=== PATIENT | female | born 1965 | race Caucasian/White ===

== ENCOUNTER 2024-03-12 20:38 | Inpatient (IN) | payer OTHER ==
[~2024-03-12] VITALS: Ht 167.6 cm; Wt 105.4 kg
[2024-03-12 02:30] VITALS: BP 158/81
[~2024-03-12 20:38] MED LIST: AMOXICILLIN500 MG PO; CIPRO500 MG PO; CLARITIN-D 12 H1 TAB PO; DIFLUCAN150 MG PO; FLONASE0.05 MG/AC NS; KEFLEX500 MG PO; LOMOTIL 0.025 M1 TAB PO; MEDROL DOSEPAK4 MG PO; Phenergan25 MG PO; TORADOL10 MG PO; VICODIN 5/500 505 MG PO; VICODIN 500 MG-1 TAB PO; ZYLOPRIM100 MG PO
[2024-03-12 20:48] VITALS: BP 151/64
[2024-03-12] MEDS ORDERED: ACETAMINOPHEN 325 MG TAB PO ONE (20:55)
[2024-03-12 21:09] LABS: BASO % 0.4 % (0.0-1.0); EOS % 0.2 % (1.0-4.0); HEMATOCRIT 38.9 % (37.0-47.0); MEAN CELL VOLUME 88.8 fl (81.0-99.0); MEAN CORPUSCULAR HGB 29.2 pg (27.0-31.0); MEAN CORPUSCULAR HGB CONC 32.9 g/dl (33.0-37.0); MEAN PLATELET VOLUME 11.5 fl (9.6-12.3); MONO # 0.4 10*3/uL (0.1-1.0); MONO % 7.7 % (3.0-9.0); NEUT # 4.2 10*3/uL (2.3-7.9); NEUT % 84.4 % (47.0-73.0); PLATELET COUNT AUTOMATED 96 10*3/uL (130-400); RED BLOOD COUNT 4.38 10*6/uL (4.10-5.10); RED CELL DISTRI WIDTH 16.5 % (0-14.5)
[2024-03-12 21:27] LABS: POTASSIUM 3.8 mmol/L (3.4-5.1)
[2024-03-12] MEDS ORDERED: SODIUM CHLORIDE 0.9% 500 ML IV ONE (21:50)
[2024-03-12 23:31] LABS: BILIRUBIN Negative (Negative); BLOOD 1+ (Negative); CLARITY Clear (Clear); COLOR Yellow (Yellow); GLUCOSE 1+ (Negative); KETONE 2+ (Negative); LEUKO ESTERASE Negative (Negative); NITRITE Negative (Negative)
[2024-03-12 23:39] LABS: EPITHELIAL CELLS 16-20
[2024-03-13] MEDS ORDERED: ARMOUR THYROID90 M1 PO (00:19)
[2024-03-13] MEDS ORDERED: ACETAMINOPHEN 650 MG SUPP R PRN (00:20)
[2024-03-13] MEDS ORDERED: MORPHINE Sulfate 2 MG/ML SYR IV PRN (00:20)
[2024-03-13] MEDS ORDERED: BISACODYL 10 MG SUPP R PRN (00:20)
[2024-03-13] MEDS ORDERED: ACETAMINOPHEN 325 MG TAB PO PRN (00:20)
[2024-03-13] MEDS ORDERED: BISACODYL 5 MG TAB PO PRN (00:20)
[2024-03-13] MEDS ORDERED: Magnesium Hydroxide 30 ML UDC PO PRN (00:20)
[2024-03-13] MEDS ORDERED: Ondansetron Hydrochloride 4 MG/2 ML VIAL IV PRN (00:20)
[2024-03-13] MEDS ORDERED: TEMAZEPAM 15 MG CAP PO PRN (00:20)
[2024-03-13] MEDS ORDERED: SODIUM CHLORIDE 0.9% 1,000 ML IV SCH ×2 (00:25→19:40)
[2024-03-13 01:17] VITALS: BP 145/61
[2024-03-13 02:30] VITALS: BP 151/81
[2024-03-13] MEDS ORDERED: Ceftriaxone Sodium 1 GM in SYRINGE INFUSION 10 ML IV SCH (04:00)
[2024-03-13] MEDS ORDERED: AZITHROMYCIN 250 ML IV SCH (04:13)
[2024-03-13] MEDS ORDERED: Pantoprazole Sodium 40 MG TAB PO SCH (06:00)
[2024-03-13 08:00] VITALS: BP 138/64
[2024-03-13] MEDS ORDERED: NYSTATIN 500,000 UNITS/5 ML UDC PO SCH (10:00)
[2024-03-13] MEDS ORDERED: GUAIFENESIN 600 MG TAB ER PO SCH (10:00)
[2024-03-13] MEDS ORDERED: Enoxaparin Sodium 40 MG/0.4 ML SYR SC SCH (10:00)
[2024-03-13 16:00] VITALS: BP 134/68
[2024-03-13 20:06] VITALS: BP 133/61
[2024-03-14] VITALS: BP 113/34
[2024-03-14 06:24] LABS: HEMATOCRIT 33.3 % (37.0-47.0); MEAN CELL VOLUME 88.8 fl (81.0-99.0); MEAN CORPUSCULAR HGB 28.8 pg (27.0-31.0); MEAN CORPUSCULAR HGB CONC 32.4 g/dl (33.0-37.0); MEAN PLATELET VOLUME 11.7 fl (9.6-12.3); PLATELET COUNT AUTOMATED 96 10*3/uL (130-400); RED BLOOD COUNT 3.75 10*6/uL (4.10-5.10); RED CELL DISTRI WIDTH 16.6 % (0-14.5)
[2024-03-14 06:27] LABS: ACT PARTIAL THROMBO TIME 34.8 SECONDS (20.0-32.1); ALKALINE PHOSPHATASE 39 U/L (46-116); BUN 9 mg/dl (9-23); CHLORIDE 106 mmol/L (98-107); CHOLESTEROL 254 mg/dL (<200); FREE T4 0.53 ng/dl (0.89-1.76); LDL CHOLESTEROL 192 mg/dL (9-159); POTASSIUM 3.4 mmol/L (3.4-5.1); SGPT/ALT 17 U/L (5-49); TRIGLYCERIDES 76 mg/dl (<150)
[2024-03-14 07:15] LABS: MANUAL DIFF REFLEX YES
[2024-03-14 07:40] LABS: ACANTHOCYTES FEW; BASOPHILS 1 % (0-1); BURR CELLS FEW; PLATELET SUFFICIENCY LOW (NORMAL); TOTAL CELLS COUNTED 100 #CELLS
[2024-03-14 08:00] VITALS: BP 118/57
[2024-03-14 09:34] LABS: VITAMIN D, 25-HYDROXY 50.3 ng/mL (30-100)
[2024-03-14 12:00] VITALS: BP 137/63
[2024-03-14 16:00] VITALS: BP 125/36
[2024-03-14 16:03] VITALS: BP 140/60
[2024-03-14] MEDS ORDERED: IBUPROFEN 600 MG TAB PO PRN (16:15)
[2024-03-14 20:00] VITALS: BP 122/62
[2024-03-15] VITALS: BP 135/60
[2024-03-15] MEDS ORDERED: THYROID 30 MG TAB PO SCH (06:00)
[2024-03-15] MEDS ORDERED: Levothyroxine Sodium 175 MCG TAB PO SCH (06:00)
[2024-03-15 06:09] LABS: BASO % 0.4 % (0.0-1.0); EOS % 0.7 % (1.0-4.0); HEMATOCRIT 35.5 % (37.0-47.0); MEAN CELL VOLUME 88.5 fl (81.0-99.0); MEAN CORPUSCULAR HGB 29.7 pg (27.0-31.0); MEAN CORPUSCULAR HGB CONC 33.5 g/dl (33.0-37.0); MEAN PLATELET VOLUME 12.2 fl (9.6-12.3); MONO # 0.2 10*3/uL (0.1-1.0); MONO % 7.8 % (3.0-9.0); NEUT # 2.2 10*3/uL (2.3-7.9); NEUT % 79.4 % (47.0-73.0); PLATELET COUNT AUTOMATED 97 10*3/uL (130-400); RED BLOOD COUNT 4.01 10*6/uL (4.10-5.10); RED CELL DISTRI WIDTH 16.2 % (0-14.5); WHITE BLOOD COUNT 2.8 10*3/uL (4.8-10.8)
[2024-03-15 06:39] LABS: BUN 8 mg/dl (9-23); CHLORIDE 103 mmol/L (98-107); CPK 528 U/L (34-171); POTASSIUM 3.8 mmol/L (3.4-5.1)
[2024-03-15 08:00] VITALS: BP 136/40
[2024-03-15] MEDS ORDERED: SODIUM CHLORIDE 0.9% 1,000 ML IV ONE (10:05)
[2024-03-15 12:00] VITALS: BP 115/61
[2024-03-15] MEDS ORDERED: BENZONATATE 100 MG CAP PO PRN (13:35)
[2024-03-15 16:00] VITALS: BP 152/77
[2024-03-15 20:00] VITALS: BP 150/49
[2024-03-15] MEDS ORDERED: Na Phos, Dibasic/Na Phos, Mo 1 EA BOT R ONE (23:20)
[2024-03-16] VITALS: BP 150/66
[2024-03-16 06:46] LABS: BUN 10 mg/dl (9-23); CHLORIDE 104 mmol/L (98-107); CPK 471 U/L (34-171); POTASSIUM 3.5 mmol/L (3.4-5.1)
[2024-03-16 07:04] LABS: BASO % 0.4 % (0.0-1.0); EOS % 1.6 % (1.0-4.0); HEMATOCRIT 33.8 % (37.0-47.0); MEAN CORPUSCULAR HGB 28.9 pg (27.0-31.0); MEAN CORPUSCULAR HGB CONC 32.8 g/dl (33.0-37.0); MONO # 0.2 10*3/uL (0.1-1.0); MONO % 7.5 % (3.0-9.0); NEUT # 1.8 10*3/uL (2.3-7.9); NEUT % 70.3 % (47.0-73.0); PLATELET COUNT AUTOMATED 105 10*3/uL (130-400); RED BLOOD COUNT 3.84 10*6/uL (4.10-5.10); RED CELL DISTRI WIDTH 16.3 % (0-14.5); WHITE BLOOD COUNT 2.5 10*3/uL (4.8-10.8)
[2024-03-16 08:00] VITALS: BP 130/78
[2024-03-16] MEDS ORDERED: Albuterol Sulfate 2.5 MG/3 ML VIAL NEB SCH (10:25)
[2024-03-16 12:00] VITALS: BP 147/66
[2024-03-16 16:00] VITALS: BP 127/45
[2024-03-16 20:00] VITALS: BP 153/87
[2024-03-17] VITALS: BP 152/60
[2024-03-17 06:36] LABS: HEMATOCRIT 33.4 % (37.0-47.0); MEAN CELL VOLUME 87.4 fl (81.0-99.0); MEAN CORPUSCULAR HGB 28.8 pg (27.0-31.0); MEAN CORPUSCULAR HGB CONC 32.9 g/dl (33.0-37.0); MEAN PLATELET VOLUME 11.8 fl (9.6-12.3); PLATELET COUNT AUTOMATED 117 10*3/uL (130-400); RED BLOOD COUNT 3.82 10*6/uL (4.10-5.10); RED CELL DISTRI WIDTH 16.2 % (0-14.5); WHITE BLOOD COUNT 2.3 10*3/uL (4.8-10.8)
[2024-03-17 06:48] LABS: BUN 11 mg/dl (9-23); CHLORIDE 105 mmol/L (98-107); POTASSIUM 3.4 mmol/L (3.4-5.1)
[2024-03-17 07:16] LABS: MANUAL DIFF REFLEX YES
[2024-03-17 07:22] LABS: BASOPHILS 1 % (0-1); BURR CELLS FEW; OVALOCYTES FEW; PLATELET SUFFICIENCY LOW (NORMAL); POLYCHROMASIA SLIGHT; TOTAL CELLS COUNTED 100 #CELLS
[2024-03-17 08:00] VITALS: BP 158/72
[2024-03-17] MEDS ORDERED: FOLIC ACID 0.4 MG TAB PO SCH (10:00)
[2024-03-17 12:00] VITALS: BP 146/70
[2024-03-17] MEDS ORDERED: CEFEPIME HCL IN DEXTROSE 5 % 50 ML IV SCH (14:00)
[2024-03-17 16:00] VITALS: BP 127/49; BP 148/73
== END 2024-03-17 18:37 | disposition left against medical advice (07) | DRG 871 ==
LOC: ED 20:38 → 4E 23:57 → EDHOLD 23:57 → 4E 03-13 01:47
PROVIDERS: Internal Medicine; Student in an Organized Health Care Education/Training Program; ADMIT Family Medicine; ATTEND Family Medicine
DX: A41.51 Sepsis due to Escherichia coli [E. coli] (principal); J15.5 Pneumonia due to Escherichia coli; N17.0 Acute kidney failure with tubular necrosis; J96.01 Acute respiratory failure with hypoxia; R04.2 Hemoptysis; D61.818 Other pancytopenia; E66.09 Other obesity due to excess calories; R26.2 Difficulty in walking, not elsewhere classified; G90.89 Other disorders of autonomic nervous system; E78.2 Mixed hyperlipidemia; K57.30 Diverticulosis of large intestine without perforation or abscess without bleeding; Z53.29 Procedure and treatment not carried out because of patient's decision for other reasons; M51.369 Other intervertebral disc degeneration, lumbar region without mention of lumbar back pain or lower extremity pain; E86.0 Dehydration; E06.3 Autoimmune thyroiditis; K80.20 Calculus of gallbladder without cholecystitis without obstruction; E66.01 Morbid (severe) obesity due to excess calories; Z90.710 Acquired absence of both cervix and uterus; Z88.1 Allergy status to other antibiotic agents; Z88.5 Allergy status to narcotic agent; Z68.37 Body mass index [BMI] 37.0-37.9, adult

== ENCOUNTER 2024-04-17 13:15 | Emergency (ER) | payer OTHER ==
[~2024-04-17] VITALS: Ht 167.6 cm; Wt 97.5 kg
[~2024-04-17 13:15] MED LIST changes: +ARMOUR THYROID90 M1 PO; +PREDNISONE10 MG PO; +ZITHROMAX250 MG PO
[2024-04-17 14:41] LABS: BASO % 0.3 % (0.0-1.0); EOS # 0.2 10*3/uL (0.0-0.4); HEMATOCRIT 35.3 % (37.0-47.0); MEAN CELL VOLUME 89.8 fl (81.0-99.0); MEAN CORPUSCULAR HGB 28.5 pg (27.0-31.0); MEAN CORPUSCULAR HGB CONC 31.7 g/dl (33.0-37.0); MEAN PLATELET VOLUME 11.3 fl (9.6-12.3); MONO # 0.3 10*3/uL (0.1-1.0); MONO % 4.4 % (3.0-9.0); NEUT # 4.5 10*3/uL (2.3-7.9); NEUT % 78.7 % (47.0-73.0); PLATELET COUNT AUTOMATED 144 10*3/uL (130-400); RED BLOOD COUNT 3.93 10*6/uL (4.10-5.10); RED CELL DISTRI WIDTH 15.3 % (0-14.5); WHITE BLOOD COUNT 5.7 10*3/uL (4.8-10.8)
[2024-04-17 15:25] LABS: POTASSIUM 4.3 mmol/L (3.4-5.1); TOTAL PROTEIN 7.2 gm/dL (6.0-8.0)
[2024-04-17 15:26] LABS: ACT PARTIAL THROMBO TIME 28.2 SECONDS (20.0-32.1)
[2024-04-17] MEDS ORDERED: APIXABAN 5 MG TAB PO ONE (16:00)
[2024-04-17] MEDS ORDERED: ELIQUIS5 M2 PO (16:56)
[2024-04-17] MEDS ORDERED: ALBUTEROL2.5 MG/0.5 INH ×2 (17:37→18:13)
[2024-04-17] MEDS ORDERED: ELIQUIS5 M1 PO (18:13)
== END 2024-04-17 17:28 | disposition home or self-care (01) ==
LOC: ED 13:15
PROVIDERS: Emergency Medicine
DX: I82.411 Acute embolism and thrombosis of right femoral vein (principal); I82.431 Acute embolism and thrombosis of right popliteal vein; I82.451 Acute embolism and thrombosis of right peroneal vein; E11.9 Type 2 diabetes mellitus without complications; I10 Essential (primary) hypertension; M10.9 Gout, unspecified; Z88.1 Allergy status to other antibiotic agents; Z88.5 Allergy status to narcotic agent; Z98.890 Other specified postprocedural states; Z90.710 Acquired absence of both cervix and uterus

== ENCOUNTER 2024-04-29 10:10 | Emergency (ER) | payer OTHER ==
[~2024-04-29] VITALS: Ht 167.6 cm; Wt 99.8 kg
[~2024-04-29 10:10] MED LIST changes: +ALBUTEROL2.5 MG/0.5 INH; +ELIQUIS5 M1 PO; +ELIQUIS5 M2 PO
[2024-04-29 10:51] LABS: BASO % 0.5 % (0.0-1.0); EOS # 0.2 10*3/uL (0.0-0.4); EOS % 3.9 % (1.0-4.0); HEMATOCRIT 27.9 % (37.0-47.0); MEAN CELL VOLUME 90.9 fl (81.0-99.0); MEAN CORPUSCULAR HGB CONC 30.8 g/dl (33.0-37.0); MEAN PLATELET VOLUME 10.4 fl (9.6-12.3); MONO # 0.4 10*3/uL (0.1-1.0); MONO % 7.2 % (3.0-9.0); NEUT # 4.2 10*3/uL (2.3-7.9); NEUT % 74.2 % (47.0-73.0); PLATELET COUNT AUTOMATED 275 10*3/uL (130-400); RED BLOOD COUNT 3.07 10*6/uL (4.10-5.10); RED CELL DISTRI WIDTH 15.1 % (0-14.5); WHITE BLOOD COUNT 5.7 10*3/uL (4.8-10.8)
[2024-04-29 11:09] LABS: BUN 13 mg/dl (9-23); CHLORIDE 105 mmol/L (98-107); POTASSIUM 4.7 mmol/L (3.4-5.1)
[2024-04-29] MEDS ORDERED: AVPAK AZITHROM250 MG PO (13:42)
== END 2024-04-29 13:55 | disposition home or self-care (01) ==
LOC: ED 10:10
PROVIDERS: Internal Medicine
DX: J40 Bronchitis, not specified as acute or chronic (principal); E11.9 Type 2 diabetes mellitus without complications; I10 Essential (primary) hypertension; Z86.718 Personal history of other venous thrombosis and embolism; Z88.1 Allergy status to other antibiotic agents; Z88.5 Allergy status to narcotic agent; Z90.710 Acquired absence of both cervix and uterus; Z98.890 Other specified postprocedural states

== ENCOUNTER 2024-05-16 14:33 | Emergency (ER) | payer OTHER ==
[~2024-05-16] VITALS: Ht 167.6 cm; Wt 99.8 kg
[~2024-05-16 14:33] MED LIST changes: +AVPAK AZITHROM250 MG PO; +MASON NATURAL325 MG PO; +NATURE'S BLEND F1 MG PO; +VIBRAMYCIN100 MG PO
[2024-05-16] MEDS ORDERED: PRADAXA150 MG PO (15:00)
[2024-05-16] MEDS ORDERED: SODIUM CHLORIDE 0.9% 1,000 ML IV ONE (15:10)
[2024-05-16 15:42] LABS: EOS % 0.3 % (1.0-4.0); HEMATOCRIT 26.7 % (37.0-47.0); MEAN CELL VOLUME 92.7 fl (81.0-99.0); MEAN CORPUSCULAR HGB 27.4 pg (27.0-31.0); MEAN CORPUSCULAR HGB CONC 29.6 g/dl (33.0-37.0); MEAN PLATELET VOLUME 11.8 fl (9.6-12.3); MONO # 0.2 10*3/uL (0.1-1.0); MONO % 6.9 % (3.0-9.0); NEUT # 2.7 10*3/uL (2.3-7.9); NEUT % 80.2 % (47.0-73.0); PLATELET COUNT AUTOMATED 150 10*3/uL (130-400); RED BLOOD COUNT 2.88 10*6/uL (4.10-5.10); RED CELL DISTRI WIDTH 18.3 % (0-14.5); WHITE BLOOD COUNT 3.3 10*3/uL (4.8-10.8)
[2024-05-16 16:07] LABS: BUN 16 mg/dl (9-23); CHLORIDE 105 mmol/L (98-107); POTASSIUM 3.7 mmol/L (3.4-5.1)
[2024-05-18] MEDS ORDERED: PRADAXA150 MG PO (13:08)
[2024-05-18] MEDS ORDERED: ELIQUIS5 M2 PO (13:09)
[2024-05-18] MEDS ORDERED: PANTOPRAZOLE SO40 MG PO (13:09)
[2024-05-18] MEDS ORDERED: LOSARTAN POTASS50 M1 PO (13:09)
== END 2024-05-16 18:28 | disposition home or self-care (01) ==
LOC: ED 14:33
PROVIDERS: Emergency Medicine
DX: R06.02 Shortness of breath (principal); D64.9 Anemia, unspecified; I10 Essential (primary) hypertension; E78.5 Hyperlipidemia, unspecified; Z88.1 Allergy status to other antibiotic agents; Z88.5 Allergy status to narcotic agent; Z91.041 Radiographic dye allergy status; Z79.899 Other long term (current) drug therapy; Z98.890 Other specified postprocedural states; Z90.711 Acquired absence of uterus with remaining cervical stump; Z86.718 Personal history of other venous thrombosis and embolism; Z86.711 Personal history of pulmonary embolism